=== PATIENT | female | born 1960 | race Caucasian/White ===

== ENCOUNTER → 2018-07-08 | Outpatient (CLI) | payer BC ==
--- NOTE | 2018-07-08 14:03 | US ---
EXAM DESCRIPTION: Abdomen,Complete: Ultrasound. CLINICAL HISTORY: RUQ PAIN COMPARISON: None Available. TECHNIQUE: Transabdominal scannin-dimensional and Doppler modes. FINDINGS: Gallbladder: Normal size and echogenicity. No stones or sludge. Wall thickness 1 mm normal caliber. No surrounding fluid. Nontender with transducer pressure. Common bile duct: 3 mm normal caliber. Liver: Heterogeneous increased echogenicity. Normal intrahepatic ducts. Long axis of the right lobe 15.4 cm. Normal caliber of the portal vein and hepatopedal flow. Smooth capsule with no ascites. Pancreas: Normal size and echogenicity. Duct not seen. Abdominal aorta: Normal caliber from the proximal segment to the distal bifurcation. IVC: visualized; normal caliber. Spleen normal echogenicity; long axis measurement is 9.4 cm. Right kidney: 9.9 cm long axis. Normal cortical thickness and echogenicity. No hydronephrosis or perinephric fluid. Left kidney: 10.3 cm long axis. Normal cortical thickness and echogenicity. No hydronephrosis or perinephric fluid. IMPRESSION: 1. Steatosis of the liver with no enlargement. Normal ducts in vascularity. Smooth capsule and no ascites. 2. Remaining abdominal organs normal size and echogenicity. Normal caliber of the common bile duct, abdominal aorta, and IVC. Gallbladder is negative. Electronically signed by: Onesimo Grissom MD 07/08/2018 2:02 PM [employer]
== END ==
LOC: US 11:50
PROVIDERS: ATTEND General Practice
DX: R10.11 Right upper quadrant pain (principal); K76.0 Fatty (change of) liver, not elsewhere classified